=== PATIENT | male | born 2000 | race Caucasian/White ===

== ENCOUNTER 2023-01-31 09:39 | Outpatient (CLI) | payer OTHER | END 2023-01-31 09:40 | disposition home or self-care (01) | LOC: CSHULT 09:39 | PROVIDERS: ATTEND Physician Assistant Medical | DX: R79.89 Other specified abnormal findings of blood chemistry (principal); R16.0 Hepatomegaly, not elsewhere classified | CPT/HCPCS: 76705 ==